=== PATIENT | female | born 1975 | race Caucasian/White ===

== ENCOUNTER 2023-12-18 15:54 | Emergency (ER) | payer BC, SELFPAY ==
[2023-12-18 15:56] VITALS: BP 113/75
[2023-12-18 16:24] LABS: % Basophils 0.8 % (0-2); % Eosinophils 1.2 % (0-6); % Immature Granulocytes 0.3 % (0-0.5); % Lymphocytes 28.5 % (20.5-51.1); % Monocytes 6.1 % (1.7-9.3); % Neutrophils 63.1 % (42.2-75.2); Absolute Basophils 0.1 10^3/uL (0-0.2); Absolute Eosinophils 0.1 10^3/uL (0-0.7); Absolute Lymphocytes 2.1 10^3/uL (1.2-3.4); Absolute Monocytes 0.5 10^3/uL (0.1-0.6); Absolute Neutrophils 4.7 10^3/uL (1.4-6.5); Hematocrit 36.5 % (37.0-47.0); Hemoglobin 12.9 g/dL (12.0-16.0); Mean Corp Hgb Conc. 35.3 g/dL (33.0-37.0); Mean Corpuscular Hgb 31.2 pg (27.0-31.0); Mean Corpuscular Volume 88.4 fL (81.0-99.0); Mean Platelet Volume 8.9 fL (7.4-10.4); Nucleated Red Blood Cells % 0 %; Platelet Count 325 10^3/uL (130-400); Red Blood Cell Count 4.13 10^6/uL (4.20-5.40); Red Cell Dist. Width 12.4 % (11.5-14.5); White Blood Cell Count 7.5 10^3/uL (4.8-10.8)
[2023-12-18 16:38] LABS: ALT (SGPT) 20 U/L (0-35); AST (SGOT) 25 U/L (14-36); Albumin 4.7 g/dl (3.5-5.0); Alkaline Phosphatase 47 U/L (38-126); Blood Urea Nitrogen 14 mg/dl (7-17); Calcium 9.8 mg/dl (8.4-10.2); Carbon Dioxide 31 mmol/L (22-30); Chloride 98 mmol/L (98-107); Glucose 140 mg/dl (70-99); Lipase 57 U/L (23-300); Potassium 3.7 mmol/L (3.5-5.1); Sodium 138 mmol/L (135-145); Total Bilirubin 0.5 mg/dl (0.2-1.3); Total Protein 7.4 g/dl (6.3-8.2); eGFR > 60.00
--- NOTE | 2023-12-18 17:40 | ED.GENMED ---
History of Present Illness
General
Chief Complaint: Abdominal Pain
Time Seen by Provider: 12/18/23 17:38
History of Present Illness
History of Present Illness:
TIME OF INITIAL ENCOUNTER: 5:45 PM
HPI: Patient presents with left upper quadrant pain ongoing for the past 4 days associate with nausea without vomiting or diarrhea. She has questionable left-sided back pain. She has had no fevers. Her symptoms are primarily nausea as opposed to
pain. She does have a history of a hiatal hernia but she is not on any PPI.
EXAM:
GENERAL: Well appearing in no distress
HEENT: Moist oral mucosa
CARDIOVASCULAR: No murmurs, normal heart rate, regular rhythm, No chest wall tenderness
PULMONARY: No respiratory distress, breath sounds are clear and equal
ABDOMEN: Soft with no peritoneal signs, minimal if any left upper quadrant tenderness, questionable left CVA tenderness
NEUROLOGIC: Excellent strength all extremities, no coordination deficits
PSYCHIATRIC: Appropriate mental status, normal insight and judgement
EXTREMITIES: Nontender, no edema, moves all extremities equally
SKIN: No rash, no lesions
NUMBER AND COMPLEXITY OF PROBLEMS ADDRESSED AT THE ENCOUNTER
� Chronic conditions affecting care: Has had a in the past
� Acute Exacerbation and/or Progression of Chronic Illness: This is an acute problem
� Differential Diagnosis includes: Viral syndrome, abdominal muscle strain, bacterial infection unlike given normal temperature and normal white blood cell count and overall well appearance, ectopic
AMOUNT AND/OR COMPLEXITY OF DATA TO BE REVIEWED AND ANALYZED
� I performed an independent evaluation of and my interpretation is:
EKG:
CT: Noncontrast CT imaging was obtained as she had left-sided pain with questionable symptoms into the back as well primarily look for ureteral stone but this was negative
X-rays:
Laboratory Studies: White count 7.5, chemistries unremarkable including transaminases and lipase, hCG negative and urinalysis unremarkable
Other:
� Review of other/old records: The patient was seen here in [place] and 17 with a vaginal delivery
� Clinical information was obtained by an independent historian: None needed
� Prescriptions/Medications Considered but not given:
� Further testing considered but not performed:
RISK OF COMPLICATIONS AND/OR MORBIDITY OR MORTALITY OF PATIENT MANAGEMENT
� Social determinants of health affecting care: Lives at home
� Discussion with other providers:
� Escalation of care including admission/observation vs risk of discharge considered: The patient was given Zofran ODT shortly after arrival. CT imaging obtained. Lab work is unremarkable.
ANY OTHER UPDATES:
7:40 PM: I reassessed the patient: Nausea persist despite Zofran however she appears very comfortable. Noncontrast CT imaging unremarkable. No evidence for stone. We talked about the possibly of hiatal hernia as a contributing factor however
there is no clear abnormal findings on CT imaging today. Recommended PPI
Past History
Past History
ED Past Medical History: None
Social History
Tobacco: Non-smoker
Personal:
Living: with family
Employment: Not employed
Phy Exam
Physical Exam
Physical Exam:
See HPI
Course
Orders/Labs/Results
Orders:
Orders
12/18/23 16:10
Complete Blood Count/With Diff Urgent
Comprehensive Metabolic Panel Urgent
HCG, Serum Qualitative Screen Urgent
Comment: ADD ON
Lipase Urgent
12/18/23 17:45
Add On- LAB Urgent
Tests Added?: hcg qualitative
CT Abd/pel Without Iv Or Oral Urgent
Comment:
Reason For Exam: L pain
12/18/23 17:46
Ondansetron Orally Disint [Zofran Odt (Orally Disintegrating)] 4 mg PO NOW STA
12/18/23 17:49
Ondansetron Orally Disint [Zofran Odt (Orally Disintegrating)] 4 mg .ROUTE .STK-MED ONE
12/18/23 19:20
Urinalysis Reflex To Culture Urgent
Date Specimen was Collected: 12/18/23
Time Specimen was Collected: 18:56
Abnormal Lab Results
12/18/23
16:10
RBC 4.13 L 10^6/uL
(4.20-5.40)
Hct 36.5 L %
(37.0-47.0)
MCH 31.2 H pg
(27.0-31.0)
Carbon Dioxide 31 H mmol/L
(22-30)
Glucose 140 H mg/dl
(70-99)
12/18/23 16:10
12/18/23 16:10
Vital Signs
Initial and Last Documented VS:
Initial Vital Signs
Temp Pulse Resp BP Pulse Ox
97.9 F 86 16 113/75 100
12/18/23 15:56 12/18/23 15:56 12/18/23 15:56 12/18/23 15:56 12/18/23 15:56
Last Documented Vital Signs
Temp Pulse Resp BP Pulse Ox
97.9 F 86 16 113/75 100
12/18/23 15:56 12/18/23 15:56 12/18/23 15:56 12/18/23 15:56 12/18/23 15:56
*Critical Care Note
Total Time (30-74mins, 75-104mins- exclusive of procedures): Not Applicable
ED Attending Note
-
Portions of this chart may have been created with voice recognition software.� Occasional wrong word or��sound alike� substitutions may have occurred due to the inherent limitations of voice recognition software.
Discharge Plan
Departure
Prescriptions:
No Action
vit no.[id number] [ Vitamin] 1 EACH tablet
1 tab PO DAILY
ibuprofen 600 MG tablet
600 mg PO Q4HPRN PRN (Reason: moderate pain/cramps) Qty: 0 0RF
Referrals:
Faby Huitron MD [Family Provider] -
Interventions
Interventions:
*Risk Screen - Suicide Last Done: 12/18/23 15:56
*General Assessment Last Done: 12/18/23 17:10
*Neglect/Abuse Screening Last Done: 12/18/23 15:56
*ED COVID-19 Vaccine History Last Done: 12/18/23 17:10
CB-Nxheko-Gesxvwdxir Assessment Last Done: 12/18/23 17:10
Discharge Date and Time
Print Language: UPPER SORBIAN
[2023-12-18] MEDS: ZOFRAN ODT (ORALLY DISINTEGRATING) 4 MG PO (17:50)
[2023-12-18 18:27] LABS: HCG, Serum Qualitative Screen Negative
[2023-12-18 19:26] LABS: Urine Albumin Negative (Neg - Trace); Urine Bilirubin Negative (Negative); Urine Character Clear (Clear); Urine Color Yellow; Urine Glucose Negative (Negative); Urine Ketone Negative (Negative); Urine Leukocyte Negative (Negative); Urine Nitrite Negative (Negative); Urine Occult Blood Negative (Negative); Urine Specific Gravity 1.015 (<1.030); Urine Urobilinogen Negative (Neg - 1+)
[2023-12-18 19:48] VITALS: BP 130/76
== END 2023-12-18 19:49 | disposition home or self-care (01) ==
LOC: EMR 15:54
PROVIDERS: EMERGENCY PHYSICIAN Emergency Medicine; FAMILY PHYSICIAN Student in an Organized Health Care Education/Training Program
DX: R11.0 Nausea (principal); K44.9 Diaphragmatic hernia without obstruction or gangrene
CPT/HCPCS: 99284; 74176; 80053; 81003; 83690; 84703; 85025